=== PATIENT | female | born 1965 | race Caucasian/White ===

== ENCOUNTER 2016-11-24 12:38 | Inpatient (IN) | payer MEDICARE, MEDICAID ==
[~2016-11-24] VITALS: Ht 162.6 cm; Wt 95.3 kg
--- NOTE | ~2016-11-24 | CON ---
PATIENT'S NAME: SAM PIKE [facility] AGE: 51 Y [address] ROOM: [place] [address] [place] [facility] [place] ADMIT DATE: 11/24/2016 Consultation DISCHARGE DATE: FAMILY PHYSICIAN: PHYSICIAN, UNKNOWN ATTENDING PHYSICIAN: TRISTA PHAN DATE OF CONSULTATION: 11/26/2016 ADDENDUM: ALLERGIES: ALLERGIC TO PENICILLIN. CURRENT MEDICATIONS: Include: 1. D5W with half normal saline at 50 mL an hour. 2. Aspirin 325 mg a day. 3. Synthroid 75 mcg a day. 4. Lipitor 40 mg a day. 5. Paxil 20 mg a day. 6. Protonix 40 mg a day. 7. Requip 1 mg at night. 8. Heparin 5000 International Units subcu three times a day. 9. NicoDerm 14 mg everyday. M MD ANN ARGUETA/precious /[id number] d: 11/26/161535 t: 12/02/16 153, CONSULTATION REPORT
--- NOTE | ~2016-11-24 | DS ---
PATIENT'S NAME: SAM PIKE [facility] AGE: 51 Y [address] ROOM: [place] [address] LOCATION: [facility] [place] ADMIT DATE: 11/24/2016 Discharge Summary DISCHARGE DATE: 11/29/2016 FAMILY PHYSICIAN: Physician, Unknown ATTENDING PHYSICIAN: Efren Dickens PRINCIPAL DISCHARGE DIAGNOSIS: Acute kidney injury secondary to lithium- induced interstitial nephritis. SECONDARY DIAGNOSES: 1. Chronic kidney disease, stage 3. 2. [place] toxicity. 3. Urinary tract infection due to Escherichia coli, which is lim- susceptible. 4. Bipolar disorder. 5. Depression. 6. Hypothyroidism. 7. Acute encephalopathy, multifactorial-infectious and metabolic, resolved. 8. Hypernatremia, mild, resolved. 9. Obesity. 10. Tobacco abuse, currently smoking 1-pack per day. 11. Smoking cessation counseling. 12. Hyperlipidemia. CONSULTATIONS: 1. Nephrology, Dr. Ortega. 2. Tre Mcgarry MD. PROCEDURES: None. BRIEF HISTORY: Ms. Pike is a very pleasant 51-year-old female with a history of bipolar disorder I and depression who had been treated with lithium. She presented from her home with a history of 2 days of confusion. Associated with that was an increased frequency of urination and foul-smelling urine. On initial evaluation, she was lethargic, but awake and able to give some review of systems. She did have dysuria, but denied subjective fevers and chills. She denied nausea, vomiting, diarrhea, and constipation as well. Initial vital signs, she was afebrile, blood pressure 124/80, pulse of 84, respirations 20, and oxygen saturation 95% on room air. Her urinalysis showed positive nitrites and a white blood cell count was high at 17, creatinine was 2.8, and lactic acid 1.4. She was admitted for further evaluation and management of her acute illness PATIENT'S NAME: OLIVIA PIKE [facility]erv[facility] AGE: 51 Y [address] ROOM: [place] [address] LOCATION: [facility] [place] ADMIT DATE: 11/24/2016 Discharge Summary DISCHARGE DATE: 11/29/2016 FAMILY PHYSICIAN: Physician, Unknown ATTENDING PHYSICIAN: Efren Dickens and was treated with IV fluids, lithium was held, and Psychiatry was consulted. Dr. Ortega was consulted, serial renal panels were obtained with hydration holding the lithium, her creatinine has improved from the admission level to 1.9 today. She has a calculate eGFR of 31 and it is presumed that she has chronic kidney disease, stage 3 with the acute increase in creatinine related to the lithium-induced interstitial nephritis. She had a transient elevated sodium level, which is now resolved. She is putting out large amounts of urine and will follow up with Dr. Ortega. Urine culture showed E. coli ,which is lim-susceptible. She has been afebrile on Rocephin and tolerating that well. She will get a 4th dose of Rocephin today and I have given her a prescription for Ceftin, which she will take 3 days of starting tomorrow. She is very pleasant about smoking cessation and feels as though she has probably been through the worst of withdrawal now and agrees to use the patch. I also advised her that in addition to the patch which stays on for 24 hours, she should use nicotine gum intermittently for any craving for cigarettes. She was evaluated by Dr. Mcgarry and on the discontinuation of lithium and was started on Depakote and Seroquel. I advised her to see her caregiver at [facility] this week so that the Seroquel can be increased if needed and I have given her scripts for these new medications. In addition, she is instructed by me to lower the Paxil dose and she will get a new script for Paxil 20 mg. She is hypothyroid with a TSH level here that was within the normal range at 2.49. She was continued on her same dose of levothyroxine. INSTRUCTIONS AT DISCHARGE: Diet should be low-fat, low-carb. She should walk 30 minutes every day. Follow up with Dr. Ortega in 2 weeks, follow up with [facility] within a week of discharge, and she is advised to see her PCP also within a week, but she cannot remember that doctor's name at the moment. MEDICATIONS AT DISCHARGE: 1. Aspirin 325 mg p.o. daily. 2. Atorvastatin 40 mg p.o. daily. 3. Clonazepam 0.5 mg p.o. b.i.d. p.r.n. anxiety. 4. Depakote 500 mg p.o. b.i.d. 5. Levothyroxine 75 mcg p.o. daily. 6. NicoDerm patch 14 mg transdermal daily. 7. Protonix 40 mg p.o. daily. 8. Paroxetine 20 mg p.o. q.h.s. PATIENT'S NAME: SAM PIKE [facility] AGE: 51 Y [address] ROOM: [place] [address] LOCATION: [facility] [place] ADMIT DATE: 11/24/2016 Discharge Summary DISCHARGE DATE: 11/29/2016 FAMILY PHYSICIAN: Physician, Unknown ATTENDING PHYSICIAN: Efren Dickens 9. Seroquel 25 mg p.o. b.i.d. 10. Remeron 15 mg p.o. at h.s. 11. Benadryl at h.s. p.r.n. insomnia. 12. Ropinirole 1 mg p.o. at bedtime. 13. Breo-Ellipta 200/25 mcg inhaled 1 puff daily. 14. Ceftin 500 mg 1 p.o. daily x3 days, start on November 30. CONDITION ON DISCHARGE: Much improved. Greater than 30 minutes involved in the discharge process. JEYSON CARLOS MD LM/precious /[id number] CC: MD Tre Thomas MD d: t: 12/02/16 1049, DISCHARGE SUMMARY
--- NOTE | ~2016-11-24 | HP ---
PATIENT'S NAME: SAM PIKE [facility] AGE: 51 Y [address] ROOM: [place] [address] LOCATION: [facility] [place] ADMIT DATE: 11/24/2016 History & Physical DISCHARGE DATE: FAMILY PHYSICIAN: PHYSICIAN, UNKNOWN ATTENDING PHYSICIAN: TRISTA PHAN DATE OF SERVICE: CHIEF COMPLAINT: Acute encephalopathy, UTI. HISTORY OF PRESENT ILLNESS: This is a 51-year-old female with multiple psych issues, presents today from home with her daughter with 1 to 2 days' history of confusion. The patient reportedly has not been herself for the past couple of days and seemed to have increased frequency urination and foul-smelling urine during this time. During my visitation, the patient is awake, alert, and oriented, but a bit lethargic, although I was not sure what her baseline status is. The patient reports some cough that is not new for her, and she is an active smoker. Does report some dysuria symptoms, however, denies any subjective fever or chills. Denies any nausea, vomiting, diarrhea, or constipation. PAST MEDICAL HISTORY: 1. Bipolar disorder. 2. Hyperlipidemia. 3. Hypothyroidism. 4. Depression. SOCIAL HISTORY: The patient is an active smoker, smokes about half a pack a day. Denies any alcohol or drug use. FAMILY HISTORY: The patient reports history of stroke in both her parents. REVIEW OF SYSTEMS: All systems have been reviewed and were all negative except as described in the HPI. PHYSICAL EXAMINATION: VITAL SIGNS: Temperature 96.7, pulse 84, respiratory rate 20, blood pressure 124/80, saturating 95% on room air. GENERAL: The patient is awake, alert, oriented x3, but lethargic and appears a bit confused. HEENT: Dry mucosal membranes. No scleral icterus, conjunctival pallor noted. PAT[facility]'S [facility]: [facility] AGE: 51 Y [address] ROOM: [place] [address] LOCATION: [facility] [place] ADMIT DATE: 11/24/2016 History & Physical DISCHARGE DATE: FAMILY PHYSICIAN: PHYSICIAN, UNKNOWN ATTENDING PHYSICIAN: TRISTA PHAN SKIN: Without rash or lesions. CHEST: Clear to auscultation bilaterally. HEART: S1, S2. Regular rate and rhythm. ABDOMEN: Mild suprapubic area tenderness but soft with positive bowel sounds. NEURO: Negative for focal neurological deficits. The patient has chronic tremors. MUSCULOSKELETAL: No joint tenderness, effusion, erythema noted. EXTREMITIES: Without edema. LABORATORY DATA: White count is 17. UA: Positive nitrites. ASSESSMENT AND PLAN: 1. Acute encephalopathy secondary to urinary tract infection. We will start treatment with Rocephin and await urine and blood cultures for sensitivities. We will give some IV fluids in the meantime as well and closely monitor. Initial lactic acid 1.4. 2. Urinary tract infection, complicated. Management as above and await culture results. 3. Acute kidney injury on chronic kidney disease 3. Baseline creatinine is less than 2. Creatinine today 2.8. We will hydrate and monitor renal function. 4. Bipolar disorder. We will continue her psych medications. 5. Hyperlipidemia. Continue her statin therapy. 6. Hypothyroidism. We will continue her home medications as well. 7. Deep venous thrombosis prophylaxis. We will use subcu heparin. MD NIKKY MICHEL/precious /[id number] D: [id number] T: [id number] HISTORY & PHYSICAL
--- NOTE | ~2016-11-24 | CON ---
PATIENT'S NAME: SAM PIKE [facility] AGE: 51 Y [address] ROOM: [place] [address] LOCATION: [facility] [place] ADMIT DATE: 11/24/2016 Consultation DISCHARGE DATE: FAMILY PHYSICIAN: PHYSICIAN, UNKNOWN ATTENDING PHYSICIAN: TRISTA PHAN DATE OF CONSULTATION: 11/26/2016 REASON FOR CONSULT: Medication adjustment. HISTORY OF PRESENT ILLNESS: The patient is a 51-year-old female with a history of bipolar I disorder who presents with acute encephalopathy in the context of UTI, lithium toxicity, and icymt-wj-hbpouhc kidney disease. The patient is seen today in her room. She remains confused and tremulous and has no recollection to the events that led to her admission. She says that she has been on lithium for more than 7 years and has been taking it as prescribed. She admits that she has been forgetful and confused and has difficulty concentrating and sleeping. The patient thinks that she is in [facility] in [place] and that the day is Wednesday. She however describes normal mood and denies other depressive, manic, or psychotic symptoms. Nursing reports indicate that the patient has been shaky with unsteady gait, she is also forgetful, slow to respond to questions, and has been having loose stools. Her lithium level on admission was 1.7. PAST PSYCHIATRIC HISTORY: The patient has a history of bipolar I disorder with prior psychiatric hospitalizations. She has been on several medications over the years and recalls being on Seroquel, Latuda, and many others. PAST MEDICAL HISTORY: Hypothyroid, dyslipidemia, chronic kidney disease, GERD, restless legs syndrome, TIA, COPD, and primary insomnia. MEDICATIONS: See medication list. ALLERGIES: PENICILLIN AND LEVOFLOXACIN. PAST FAMILY AND SOCIAL HISTORY: The patient is and lives with her daughter in [place]. She is unemployed and on disability. She denies alcohol or illicit drug use and smokes about a pack of cigarettes daily. Her family history is significant PATIENT'S NAME: SAM PIKE [facility] AGE: 51 Y [address] ROOM: [address] [address] LOCATION: [facility] [place] ADMIT DATE: 11/24/2016 Consultation DISCHARGE DATE: FAMILY PHYSICIAN: PHYSICIAN, UNKNOWN ATTENDING PHYSICIAN: TRISTA PHAN for depression, bipolar disorder, and schizoaffective disorder. REVIEW OF SYSTEMS: Ten-systems reviewed and all others negative except as noted in the history. MENTAL STATUS EXAMINATION: The patient is a pleasant lady. She appears older than stated age. She is tremulous and cooperative with the interview. She makes good eye contact. Her speech is normal. She describes her mood as euthymic. Her affect is reactive and spontaneous. Her thoughts are logical and goal-directed. She denies suicidal, homicidal, or violent ideations. She denies hallucinations and no delusions are noted at interview. She is alert, but poorly oriented to time and place. Her concentration, short-term memory, and recall are impaired. Her language is intact, her intelligence is average, her insight is limited, and judgment is fair. DIAGNOSIS: Delirium due to multiple etiologies, history of bipolar I disorder. PLAN: Discontinue lithium, reduce Paxil to 20 mg daily with a long-term plan to taper and discontinue this medication. Start Seroquel 25 mg twice daily and Depakote ER 500 mg twice daily. Adjust doses as tolerated and based on response. Re-consult Psychiatry as necessary. Schedule followup with the [facility]. Thank you for your consult. MD DICK FERGUSON/precious /[id number] d: 11/27/16 0136 t: 11/27/16 1251, CONSULTATION REPORT
--- NOTE | ~2016-11-24 | CON ---
[facility] 51 Y [address] ROOM: [place] [address] LOCATION: [facility] [place] ADMIT DATE: 11/24/2016 Consultation DISCHARGE DATE: FAMILY PHYSICIAN: PHYSICIAN, UNKNOWN ATTENDING PHYSICIAN: TRISTA DICKENS DATE OF CONSULTATION: 11/26/2016 REFERRING PHYSICIAN: Trista Dickens MD REASON FOR CONSULTATION: Elevated BUN and creatinine. HISTORY OF PRESENT ILLNESS: The patient is a 51-year-old white female who has a history of bipolar disorder. She lives at home with her daughter. The patient was found quite obtunded and she was brought into the hospital. Urine studies are suggestive of urinary tract infection. The patient was consequently diagnosed with E. coli UTI with acute encephalopathy. She has been receiving intravenous Cytoxan. On admission to the hospital, the patient was noted to have a creatinine of 2.8. She did receive a liter of half normal saline with D5W and creatinine is still high at 2.6. Dr. Dickens was concerned and asked me to see this lady for a nephrology consultation. The patient did admit that she does take Aleve for headache, maybe 2 or 3 times a week. She is not on any MINERVA inhibitor or ARB. ALLERGIES: ALLERGIC TO PENICILLIN. CURRENT MEDICATIONS: 1. Aspirin 325 mg a day. 2. Clonazepam 0.5 mg day. 3. Levothyroxine 75 mcg a day. 4. Benadryl 25 mg a day. 5. Remeron 15 mg a day. 6. Requip 1 mg a day. 7. Paxil 40 mg a day. 8. [place] carbonate 300 mg a day. 9. Pantoprazole 40 mg a day. 10. Fluticasone 200 mcg a day. 11. Atorvastatin calcium 40 mg a day. PAST MEDICAL HISTORY: Bipolar disorder, hyperlipidemia, hypothyroidism, and depressive illness. REVIEW OF SYSTEMS: [facility]GE: 51 Y [address] ROOM: [address] [address] LOCATION: [facility] [place] ADMIT DATE: 11/24/2016 Consultation DISCHARGE DATE: FAMILY PHYSICIAN: PHYSICIAN, UNKNOWN ATTENDING PHYSICIAN: TRISTA DICKENS GENERAL: She denies any fever or chills at this time. She has occasional headaches and she is slightly tired. HEENT: Denies any sore throat or sinus congestion. CARDIOVASCULAR: Denies any chest pain or dyspnea on exertion. RESPIRATORY: Denies any shortness of breath, cough, or wheezing. GI: Denies any abdominal pain, nausea, or vomiting. : She denies any dysuria or hematuria. MUSCULOSKELETAL: Denies any joint pain or swelling. SKIN: Denies any rash or pruritus. Denies any allergies or hay fever. LYMPH: Denies any lymph node enlargement or easy bruising. ENDOCRINE: Denies any heat or cold intolerance. PSYCHIATRIC: Denies any sadness, crying spells, poor concentration, or panic attack. SOCIAL HISTORY: The patient lives at home with her daughter. She does not smoke. Does not drink alcohol. FAMILY HISTORY: No family history of kidney disease or dialysis. PHYSICAL EXAMINATION: GENERAL: A pleasant 51-year-old, moderately obese white female, sitting in the hospital bed, not in acute distress. VITAL SIGNS: Temperature 98.4, pulse 77, systolic blood pressure 135 and diastolic 74. HEENT: Head is normocephalic. Pupils are round and equal. Normal eyelid and conjunctivae. Oral cavity clear. Moist mucosa. NECK: Trachea is central. No thyromegaly. Unable to evaluate jugular venous pulsation. HEART: Sounds are audible in all the areas without any gallop or murmur. There is no pericardial rub. Pulses are regular in rhythm. LUNGS: Bilaterally clear to auscultate. No intercostal retraction. ABDOMEN: Obese. Soft, nontender. Cannot palpate any liver or spleen. EXTREMITIES: She has no clubbing or cyanosis. SKIN: No sign of vasculitis. NEUROLOGIC: She is alert and grossly nonfocal. MUSCULOSKELETAL: No joint swelling. HIGHER PSYCHIATRIC FUNCTION: She has normal speech and memory. LABORATORY DATA: Sodium 144, potassium 3.6, chloride 114, bicarb 24, BUN of 12, creatinine of 2.3, calcium 9.3, phosphorus of 3.3, and albumin of 2.5. Urinalysis shows positive LE and urine culture was positive for E. coli. PATIENT'S NAME: SAM PIKE [facility] AGE: 51 Y [address] ROOM: [address] [address] LOCATION: [facility] [place] ADMIT DATE: 11/24/2016 Consultation DISCHARGE DATE: FAMILY PHYSICIAN: PHYSICIAN, UNKNOWN ATTENDING PHYSICIAN: TRISTA DICKENS ASSESSMENT: 1. Elevated creatinine and noticed that the patient had creatinine between 1.6 and 2.1 in 2010. I do not know whether this was acute versus acute on chronic. The patient does take nonsteroidals and there is a possibility that she could have a ketone chronic versus acute kidney injury from that. Her lowest systolic blood pressure I got here in the hospital was 114. As mentioned, she is not on MINERVA inhibitor or ARB. She is, however, on lithium and a long-term use of lithium can cause intestinal scarring in the kidney. This may be contributing to some renal dysfunction for the patient. 2. Bipolar disorder. 3. Hypothyroidism. 4. Hyperlipidemia. PLAN: The patient does not appear dehydrated at this time and I would recommend cutting back on IV fluid to 50 mL/hour for another liter. I will send her for renal ultrasound to look at renal anatomy. I would recommend that we try our best to take her off lithium carbonate. I did instruct the patient that she should not be taking any nonsteroidals or ALVARADO-2 inhibitors. I will follow her renal function closely while she is in the hospital. Thank you very much for allowing me to participate in this patient's care. M MD ANN ARGUETA/precious /[id number] d: 11/26/16 1806 t: 12/02/16 1542, CONSULTATION REPORT
[2016-11-24 13:31] LABS: BASOPHIL # 0.1 K/uL (0.0-0.2); BASOPHIL % 0.6 %; EOSINOPHIL # 0.2 K/uL (0.0-0.5); EOSINOPHIL % 0.9 %; HEMATOCRIT 45.1 % (33.0-46.0); HEMOGLOBIN 13.5 g/dL (10.0-15.0); IMMATURE GRANULOCYTE # 0.1 K/uL (0.0-0.3); IMMATURE GRANULOCYTE % 0.4 %; LYMPHOCYTE # 2.2 K/uL (0.8-4.0); LYMPHOCYTE % 12.6 %; MCH 25.4 pg (27.0-34.0); MCHC 29.9 gm/dL (32.0-36.5); MCV 84.8 fl (83.0-98.0); MONOCYTE # 0.7 K/uL (0.0-1.0); MPV 11.1 fl (9.4-12.4); NEUTROPHIL # (ANC) 13.9 K/uL (1.8-7.8); NEUTROPHIL % 81.5 %; NRBC % 0 /100WBC (0-0.00); PLATELET COUNT 423 K/uL (150-450); RBC 5.32 M/uL (3.50-5.50); RDW-CV 29.2 % (11.9-14.6)
[2016-11-24 13:52] LABS: ALBUMIN 2.8 gm/dL (3.5-5.0); ALK PHOS 174 IU/L (33-138); ALT 13 IU/L (12-78); ANION GAP 11.5 (10.0-19.0); AST 13 IU/L (10-40); BLOOD UREA NITROGEN 14 mg/dL (6-24); CALCIUM 9.4 mg/dL (8.5-10.5); CHLORIDE 111 mMol/L (96-110); CO2 23 mMol/L (22-32); CREATININE 2.8 mg/dL (0.5-1.1); POTASSIUM 3.5 mMol/L (3.7-5.1); SODIUM 142 mMol/L (135-145); TOTAL BILIRUBIN 0.5 mg/dL (0.0-1.5); TOTAL PROTEIN 6.6 g/dL (6.0-8.4)
[2016-11-24 15:32] LABS: BILIRUBIN URINE NEGATIVE (NEGATIVE); BLOOD URINE NEGATIVE /UL (NEGATIVE); COLOR URINE YELLOW (YELLOW); GLUCOSE URINE NEGATIVE (NEGATIVE); KETONE URINE NEGATIVE (NEGATIVE); LEUKOCYTES URINE 100 /UL (NEGATIVE); NITRITE URINE POSITIVE (NEGATIVE); PROTEIN URINE 15 mg/dL (NEGATIVE); SPEC GRAVITY URINE 1.005 (1.003-1.035); TURBIDITY URINE 1+ (CLEAR); UROBILINOGEN URINE NORMAL (NORMAL)
[2016-11-24 15:38] LABS: BACTERIA URINE MANY (NEGATIVE); RBC URINE NEGATIVE #/HPF (NEGATIVE)
[2016-11-24 15:47] LABS: BARBITURATE NEGATIVE (NEGATIVE); COCAINE NEGATIVE (NEGATIVE); OPIATES NEGATIVE (NEGATIVE)
[2016-11-24 15:56] LABS: AMPHETAMINE NEGATIVE (NEGATIVE)
[2016-11-24] MEDS ORDERED: ASPIRIN325 MG PO (20:02)
[2016-11-24] MEDS ORDERED: KLONOPIN0.5 MG PO (20:02)
[2016-11-24] MEDS ORDERED: LEVOTHYROXINE75 MCG PO (20:03)
[2016-11-24] MEDS ORDERED: BENADRYL25 MG PO (20:04)
[2016-11-24] MEDS ORDERED: REQUIP1 MG PO (20:05)
[2016-11-24] MEDS ORDERED: REMERON15 MG PO (20:05)
[2016-11-24] MEDS ORDERED: PAXIL40 MG PO (20:05)
[2016-11-24] MEDS ORDERED: PROTONIX40 MG PO (20:10)
[2016-11-24] MEDS ORDERED: LITHIUM CARBON300 MG PO (20:10)
[2016-11-24] MEDS ORDERED: BREO ELLIPTA 21 EACH INH (20:14)
[2016-11-24] MEDS ORDERED: ATORVASTATIN CA40 MG PO (20:16)
[2016-11-25 05:25] LABS: BASOPHIL # 0.1 K/uL (0.0-0.2); BASOPHIL % 0.5 %; EOSINOPHIL # 0.3 K/uL (0.0-0.5); EOSINOPHIL % 1.6 %; HEMATOCRIT 41.3 % (33.0-46.0); HEMOGLOBIN 12.1 g/dL (10.0-15.0); IMMATURE GRANULOCYTE # 0.1 K/uL (0.0-0.3); IMMATURE GRANULOCYTE % 0.5 %; LYMPHOCYTE # 1.9 K/uL (0.8-4.0); LYMPHOCYTE % 11.9 %; MCH 25.3 pg (27.0-34.0); MCHC 29.3 gm/dL (32.0-36.5); MCV 86.4 fl (83.0-98.0); MONOCYTE # 0.7 K/uL (0.0-1.0); MONOCYTE % 4.6 %; MPV 10.7 fl (9.4-12.4); NEUTROPHIL # (ANC) 12.6 K/uL (1.8-7.8); NEUTROPHIL % 80.9 %; NRBC % 0 /100WBC (0-0.00); PLATELET COUNT 368 K/uL (150-450); RBC 4.78 M/uL (3.50-5.50); RDW-CV 29.2 % (11.9-14.6); WBC 15.5 K/uL (4.0-11.0)
[2016-11-25 05:39] LABS: ALBUMIN 2.4 gm/dL (3.5-5.0); CALCIUM 8.9 mg/dL (8.5-10.5); CREATININE 2.4 mg/dL (0.5-1.1); MAGNESIUM 2.5 mg/dL (1.8-2.6); PHOSPHORUS 3.3 mg/dL (2.5-4.9); POTASSIUM 3.7 mMol/L (3.7-5.1)
[2016-11-25 05:40] LABS: ANION GAP 10.7 (10.0-19.0)
[2016-11-26 04:52] LABS: BASOPHIL # 0.1 K/uL (0.0-0.2); BASOPHIL % 0.4 %; EOSINOPHIL # 0.5 K/uL (0.0-0.5); EOSINOPHIL % 4.1 %; HEMATOCRIT 40.1 % (33.0-46.0); IMMATURE GRANULOCYTE % 0.4 %; LYMPHOCYTE # 1.8 K/uL (0.8-4.0); LYMPHOCYTE % 16.1 %; MCH 25.9 pg (27.0-34.0); MCHC 29.9 gm/dL (32.0-36.5); MCV 86.4 fl (83.0-98.0); MONOCYTE # 0.4 K/uL (0.0-1.0); MONOCYTE % 3.8 %; MPV 10.7 fl (9.4-12.4); NEUTROPHIL # (ANC) 8.5 K/uL (1.8-7.8); NEUTROPHIL % 75.2 %; NRBC % 0 /100WBC (0-0.00); PLATELET COUNT 335 K/uL (150-450); RBC 4.64 M/uL (3.50-5.50); RDW-CV 29.2 % (11.9-14.6); WBC 11.3 K/uL (4.0-11.0)
[2016-11-26 05:07] LABS: ALBUMIN 2.5 gm/dL (3.5-5.0); ANION GAP 9.6 (10.0-19.0); CALCIUM 9.3 mg/dL (8.5-10.5); CREATININE 2.6 mg/dL (0.5-1.1); MAGNESIUM 2.4 mg/dL (1.8-2.6); PHOSPHORUS 3.3 mg/dL (2.5-4.9); POTASSIUM 3.6 mMol/L (3.7-5.1)
[2016-11-27 05:29] LABS: BASOPHIL # 0.1 K/uL (0.0-0.2); BASOPHIL % 0.7 %; EOSINOPHIL # 0.5 K/uL (0.0-0.5); EOSINOPHIL % 4.7 %; HEMOGLOBIN 13.2 g/dL (10.0-15.0); IMMATURE GRANULOCYTE % 0.3 %; LYMPHOCYTE # 2.1 K/uL (0.8-4.0); LYMPHOCYTE % 19.2 %; MCH 25.9 pg (27.0-34.0); MCV 86.3 fl (83.0-98.0); MONOCYTE # 0.5 K/uL (0.0-1.0); MONOCYTE % 4.7 %; MPV 10.8 fl (9.4-12.4); NEUTROPHIL # (ANC) 7.7 K/uL (1.8-7.8); NEUTROPHIL % 70.4 %; NRBC % 0 /100WBC (0-0.00); PLATELET COUNT 336 K/uL (150-450); RDW-CV 29.2 % (11.9-14.6)
[2016-11-27 05:43] LABS: ALBUMIN 2.5 gm/dL (3.5-5.0); CALCIUM 9.1 mg/dL (8.5-10.5); CREATININE 2.3 mg/dL (0.5-1.1); MAGNESIUM 2.6 mg/dL (1.8-2.6); PHOSPHORUS 3.5 mg/dL (2.5-4.9); POTASSIUM 3.6 mMol/L (3.7-5.1)
[2016-11-27 05:44] LABS: ANION GAP 8.6 (10.0-19.0)
[2016-11-28 05:07] LABS: BASOPHIL # 0.1 K/uL (0.0-0.2); BASOPHIL % 0.6 %; EOSINOPHIL # 0.6 K/uL (0.0-0.5); EOSINOPHIL % 5.6 %; HEMATOCRIT 40.9 % (33.0-46.0); HEMOGLOBIN 12.3 g/dL (10.0-15.0); IMMATURE GRANULOCYTE % 0.3 %; MCH 25.9 pg (27.0-34.0); MCHC 30.1 gm/dL (32.0-36.5); MCV 86.3 fl (83.0-98.0); MONOCYTE # 0.4 K/uL (0.0-1.0); MONOCYTE % 3.7 %; MPV 11.2 fl (9.4-12.4); NEUTROPHIL # (ANC) 7.8 K/uL (1.8-7.8); NEUTROPHIL % 71.8 %; NRBC % 0 /100WBC (0-0.00); PLATELET COUNT 323 K/uL (150-450); RBC 4.74 M/uL (3.50-5.50); RDW-CV 29.3 % (11.9-14.6); WBC 10.9 K/uL (4.0-11.0)
[2016-11-28 05:24] LABS: ALBUMIN 2.3 gm/dL (3.5-5.0); ANION GAP 8.2 (10.0-19.0); MAGNESIUM 2.4 mg/dL (1.8-2.6); PHOSPHORUS 3.3 mg/dL (2.5-4.9); POTASSIUM 4.2 mMol/L (3.7-5.1)
[2016-11-29 04:46] LABS: BASOPHIL # 0.1 K/uL (0.0-0.2); BASOPHIL % 0.4 %; EOSINOPHIL # 0.6 K/uL (0.0-0.5); EOSINOPHIL % 5.1 %; HEMATOCRIT 43.1 % (33.0-46.0); HEMOGLOBIN 12.9 g/dL (10.0-15.0); IMMATURE GRANULOCYTE % 0.2 %; LYMPHOCYTE # 2.2 K/uL (0.8-4.0); LYMPHOCYTE % 19.3 %; MCH 25.9 pg (27.0-34.0); MCHC 29.9 gm/dL (32.0-36.5); MCV 86.5 fl (83.0-98.0); MONOCYTE # 0.5 K/uL (0.0-1.0); MONOCYTE % 4.3 %; MPV 11.2 fl (9.4-12.4); NEUTROPHIL # (ANC) 7.9 K/uL (1.8-7.8); NEUTROPHIL % 70.7 %; NRBC % 0 /100WBC (0-0.00); PLATELET COUNT 317 K/uL (150-450); RBC 4.98 M/uL (3.50-5.50); WBC 11.2 K/uL (4.0-11.0)
[2016-11-29 05:03] LABS: ALBUMIN 2.5 gm/dL (3.5-5.0); ANION GAP 9.9 (10.0-19.0); CALCIUM 9.1 mg/dL (8.5-10.5); CREATININE 1.9 mg/dL (0.5-1.1); MAGNESIUM 2.4 mg/dL (1.8-2.6); PHOSPHORUS 3.9 mg/dL (2.5-4.9); POTASSIUM 3.9 mMol/L (3.7-5.1)
[2016-11-29] MEDS ORDERED: DEPAKOTE EXTEN500 MG PO (13:50)
[2016-11-29] MEDS ORDERED: PAXIL20 MG PO (13:53)
[2016-11-29] MEDS ORDERED: NICOTINE PATCH1 EAC1 TOP (13:54)
[2016-11-29] MEDS ORDERED: SEROQUEL25 MG PO (13:57)
[2016-11-29] MEDS ORDERED: CEFTIN500 MG PO (14:02)
== END 2016-11-29 16:55 | disposition disaster alternative care site (69) | DRG 689 ==
LOC: GMED 12:38 → GMSU 17:22
PROVIDERS: Physician Assistant Medical; ADMIT Internal Medicine
DX: N39.0 Urinary tract infection, site not specified (principal); G93.41 Metabolic encephalopathy; N17.9 Acute kidney failure, unspecified; E87.0 Hyperosmolality and hypernatremia; N18.3 Chronic kidney disease, stage 3 (moderate); F31.4 Bipolar disorder, current episode depressed, severe, without psychotic features; N14.1 Nephropathy induced by other drugs, medicaments and biological substances; B96.20 Unspecified Escherichia coli [E. coli] as the cause of diseases classified elsewhere; E03.9 Hypothyroidism, unspecified; E66.9 Obesity, unspecified; Z68.36 Body mass index [BMI] 36.0-36.9, adult; E78.5 Hyperlipidemia, unspecified; F17.210 Nicotine dependence, cigarettes, uncomplicated; Z79.82 Long term (current) use of aspirin; Z79.01 Long term (current) use of anticoagulants; Z86.73 Personal history of transient ischemic attack (TIA), and cerebral infarction without residual deficits; J44.9 Chronic obstructive pulmonary disease, unspecified; K21.9 Gastro-esophageal reflux disease without esophagitis; G25.81 Restless legs syndrome; F51.01 Primary insomnia; Z88.1 Allergy status to other antibiotic agents; I12.9 Hypertensive chronic kidney disease with stage 1 through stage 4 chronic kidney disease, or unspecified chronic kidney disease
CPT/HCPCS: G0480; J0696; J1644; J7030; J7040; J7050

== ENCOUNTER → 2016-12-14 | Outpatient (CLI) | payer MEDICARE, MEDICAID ==
[~2016-12-14] MED LIST: ASPIRIN325 MG PO; ATORVASTATIN CA40 MG PO; BENADRYL25 MG PO; BREO ELLIPTA 21 EACH INH; CEFTIN500 MG PO; DEPAKOTE EXTEN500 MG PO; KLONOPIN0.5 MG PO; LEVOTHYROXINE75 MCG PO; LITHIUM CARBON300 MG PO; NICOTINE PATCH1 EAC1 TOP; PAXIL20 MG PO; PAXIL40 MG PO; PROTONIX40 MG PO; REMERON15 MG PO; REQUIP1 MG PO; SEROQUEL25 MG PO
== END ==
LOC: LGSMG 10:08
DX: N18.3 Chronic kidney disease, stage 3 (moderate) (principal)